=== PATIENT | female | born 1960 | race Caucasian/White ===

== ENCOUNTER 2016-12-30 20:58 | Emergency (ER) | payer OTHER ==
[2016-12-30 21:48] VITALS: BP 122/70; PULSE 77; RESP 20; TEMP 97.4; O2SAT 97
[2016-12-30] MEDS ORDERED: ONDANSETRON HCL 4 MG/2 ML SOL IV ONE (21:52)
[2016-12-30] MEDS ORDERED: MORPHINE SULFATE 10 MG/ML SOL IV ONE (21:52)
[2016-12-30] MEDS ORDERED: SODIUM CHLORIDE 0.9% 1000 ML SOL IV ONE (21:52)
[2016-12-30 22:07] LABS: BASOPHILS % (AUTO) 1 % (0-3); EOSINOPHILS % (AUTO) 2 % (0-9); HEMATOCRIT 40 % (35-47); MEAN CORPUSCULAR VOLUME 85 fL (81-99); MONOCYTES % (AUTO) 6.1 % (0-12); NEUTROPHILS % (AUTO) 74.1 % (37-80)
[2016-12-30 22:10] LABS: APPEARANCE,URINE Clear; BILIRUBIN,URINE NEGATIVE (NEGATIVE); COLOR,URINE Light yellow; GLUCOSE, URINE (UA) NEGATIVE (NEGATIVE); KETONES,URINE NEGATIVE (NEGATIVE); LEUKOCYTE ESTERASE ,URINE NEGATIVE (NEGATIVE); NITRATE,URINE NEGATIVE (NEGATIVE); OCCULT BLOOD,URINE NEGATIVE (NEG-TRACE); PH,URINE 5.5; UROBILINOGEN,URINE 0.2 (0.2-1.0 EU)
[2016-12-30 22:21] LABS: ALBUMIN 3.7 gm/dl (3.4-5.0); CALCIUM 9.3 mg/dl (8.5-10.1)
[2016-12-30 22:30] LABS: RBC,URINE 0-1 (0-3AV/HPF); WBC,URINE 0-2 (0-5AV/HPF)
[2016-12-30] MEDS ORDERED: METRONIDAZOLE 250 MG TAB PO ONE (23:18)
[2016-12-30] MEDS ORDERED: CIPROFLOXACIN HCL 500 MG TAB PO ONE (23:30)
[2016-12-30] MEDS ORDERED: METRONIDAZOLE 250 MG TAB ONE (23:34)
== END 2016-12-30 23:45 | disposition home or self-care (01) | DRG 392 ==
LOC: ED 20:58
DX: K57.32 Diverticulitis of large intestine without perforation or abscess without bleeding (principal)
CPT/HCPCS: 74177; 80053; 81001; 82150; 85025; 96365; 99283; 99284; Q9967

== ENCOUNTER 2017-03-29 18:16 | Emergency (ER) | payer OTHER ==
[2017-03-29] MEDS ORDERED: LORAZEPAM 0.5 MG TAB PO PRN (18:55)
[2017-03-29 19:02] VITALS: BP 151/90; PULSE 85; RESP 16; TEMP 97.9; O2SAT 99
== END 2017-03-29 19:22 | disposition home or self-care (01) | DRG 880 ==
LOC: ED 18:16
DX: F41.9 Anxiety disorder, unspecified (principal)
CPT/HCPCS: 99282